=== PATIENT | male | born 1985 | race Two or more races ===

== ENCOUNTER 2017-02-02 13:36 | Emergency (ER) | payer MEDICAID, OTHER ==
[~2017-02-02] VITALS: Ht 172.7 cm; Wt 117.0 kg
[2017-02-02 13:41] VITALS: BP 132/76
== END 2017-02-02 17:14 | disposition left against medical advice (07) ==
LOC: ER 13:36
DX: F32.9 Major depressive disorder, single episode, unspecified (principal); Z53.21 Procedure and treatment not carried out due to patient leaving prior to being seen by health care provider

== ENCOUNTER 2021-05-19 12:44 | Emergency (ER) | payer OTHER ==
[~2021-05-19] VITALS: Ht 167.6 cm; Wt 91.0 kg
[2021-05-19] MEDS ORDERED: ACETAMINOPHEN 325MG TABLET PO ONE (14:15)
[2021-05-19] MEDS ORDERED: BENZONATATE 100MG CAPSULE PO ONE (14:15)
[2021-05-19] MEDS ORDERED: BENZ-16 MT (15:23)
[2021-05-19 16:39] VITALS: BP 134/45
== END 2021-05-19 16:41 | disposition home or self-care (01) ==
LOC: ER 12:44
DX: B34.9 Viral infection, unspecified (principal); Z20.822 Contact with and (suspected) exposure to COVID-19
CPT/HCPCS: 87426; 99283

== ENCOUNTER 2022-08-10 05:50 | Emergency (ER) | payer OTHER ==
[~2022-08-10] VITALS: Ht 172.7 cm; Wt 113.0 kg
[~2022-08-10 05:50] MED LIST: BENZ-16 MT
[2022-08-10] MEDS ORDERED: KETOROLAC 60MG/2ML VIAL IM ONE (06:15)
[2022-08-10 06:22] VITALS: BP 132/80
[2022-08-10] MEDS ORDERED: IBUP-2028 PO (06:58)
[2022-08-10] MEDS ORDERED: T3 PO (06:58)
== END 2022-08-10 07:14 | disposition home or self-care (01) ==
LOC: ER 05:50
DX: M54.50 Low back pain, unspecified (principal)
CPT/HCPCS: 72100; 76857; 96372; 99285; J1885; Z7610

== ENCOUNTER 2023-01-12 20:33 | Emergency (ER) | payer OTHER ==
[~2023-01-12] VITALS: Ht 177.8 cm; Wt 123.0 kg
[~2023-01-12 20:33] MED LIST changes: +IBUP-2028 PO; +T3 PO
[2023-01-12 20:35] VITALS: O2SAT 96
[2023-01-12] MEDS ORDERED: MAGNESIUM/ALUMINUM HYDROXIDE/SIMETHICONE 30ML UDC PO STA (22:21)
[2023-01-12] MEDS ORDERED: ONDANSETRON 4MG ODT PO STA (22:21)
[2023-01-12] MEDS ORDERED: ACETAMINOPHEN 325MG TABLET PO STA (22:21)
[2023-01-12 22:44] LABS: BASOPHILS % 0.8 % (0.0-2.0); EOSINOPHILS % 0.1 % (0.0-5.0); HEMATOCRIT. 43.8 % (42.0-52.0); HEMOGLOBIN. 14.9 g/dL (14.0-18.0); LYMPHOCYTES % 14.8 % (20.0-50.0); MEAN CORPUSCULAR HEMOGLOBIN 28.8 pg (28.0-32.0); MEAN CORPUSCULAR VOLUME 84.6 fL (80.0-94.0); MEAN PLATELET VOLUME 8.5 fl (7.4-10.4); MONOCYTES % 9.7 % (2.0-8.0); NEUTROPHILS % 74.6 % (40.0-76.0); PLATELET 308 x1000/uL (130-400); RED BLOOD CELL COUNT 5.18 mill/uL (4.7-6.1); RED CELL DISTRIBUTION WIDTH 13.5 % (11.6-14.6); WHITE BLOOD COUNT 10.2 x1000/uL (4.5-11.0)
[2023-01-12] MEDS ORDERED: METOCLOPRAMIDE HCL 10MG/2ML VIAL IV NR (22:45)
[2023-01-12] MEDS ORDERED: SODIUM CHLORIDE 0.9% 1,000 ML IV NR (22:45)
[2023-01-12] MEDS ORDERED: ACETAMINOPHEN 325MG TABLET PO ONE (22:45)
[2023-01-12 22:51] LABS: CHLORIDE 104 mEq/L (98-107); INDEX HEMOLYSI 1 (1-3); INDEX ICTERIC 1 (1-4); INDEX LIPEMIC 1 (1-3); INR 1.1; POTASSIUM 4.2 mEq/L (3.5-5.1); PROTHROMBIN TIME 11.9 sec (9.6-11.0); SODIUM 136 mEq/L (136-145)
[2023-01-12 22:58] LABS: ALANINE AMINOTRANSFERASE 43 IU/L (13-61); ALBUMIN 3.7 g/dL (3.4-5.0); ASPARTATE AMINOTRANSFERASE 19 IU/L (15-37); BILIRUBIN TOTAL 0.9 mg/dL (0.1-1.0); CALCIUM 8.8 mg/dL (8.5-10.1); CARBON DIOXIDE 27 mEq/L (21-32); GLUCOSE 102 mg/dL (70-105); PROTEIN TOTAL 8.2 g/dL (6.0-8.3); UREA NITROGEN BLOOD 9 mg/dL (7-21)
[2023-01-12] MEDS ORDERED: KETOROLAC 15MG/ML VIAL IV ONE (23:30)
[2023-01-12 23:50] VITALS: TEMP 98.8
[2023-01-13] MEDS ORDERED: METO-293 MT (00:11)
[2023-01-13] MEDS ORDERED: ACET-2708 MT (00:11)
[2023-01-13] MEDS ORDERED: ALBU6.7H3 INH (00:11)
[2023-01-13] MEDS ORDERED: MAGNESIUM/ALUMINUM HYDROXIDE/SIMETHICONE 30ML UDC PO NR (00:30)
[2023-01-13 01:30] VITALS: BP 120/63; PULSE 98; RESP 16
== END 2023-01-13 01:33 | disposition home or self-care (01) ==
LOC: ER 20:33
DX: U07.1 COVID-19 (principal); K52.9 Noninfective gastroenteritis and colitis, unspecified; Z20.822 Contact with and (suspected) exposure to COVID-19
CPT/HCPCS: 80053; 83690; 85025; 85610; 36415; 71045; 99284; 87426; 87804 ×2; 96374; 96375; C9803; J1885; J2765; Z7610 ×2